=== PATIENT | female | born 1985 | race Caucasian/White ===

== ENCOUNTER 2016-08-14 08:05 | Day surgery (SDC) | payer OTHER ==
[~2016-08-14] VITALS: Ht 160 cm; Wt 97.0 kg
[~2016-08-14 08:05] MED LIST: 0.9% Sodium Chloride 1,000 ML IV SCH; HYG25 PO; L. A1CAP11 PO; NITR100 PO; Sodium Chloride LOK Flush 10 mL Syringe IV PRN; fentaNYL-PF 50 mCg/mL 2 mL Inj IVPUSH PRN
[2016-08-14 08:29] VITALS: BP 128/86; PULSE 85; RESP 14; O2SAT 96
[2016-08-14 09:22] VITALS: BP 118/62; PULSE 60; RESP 14; O2SAT 94
[2016-08-14 09:38] VITALS: BP 118/72; PULSE 66; RESP 14; O2SAT 98
--- NOTE | 2016-08-14 11:52 | ENDO ---
[address] [address] ENDOSCOPY PROCEDURE PATIENT: TINO LEONARDO : 1985 MR#: [id number] ADMIT: 08/14/2016 JOB ID: [id number] DATE OF SERVICE: 08/14/2016 PROCEDURE: Colonoscopy. INDICATION: Blood in the stool. ASA CLASSIFICATION: I MALLAMPATI SCORE: 2 MEDICATIONS: Versed at 6 mg, fentanyl 100 mcg. INSTRUMENT USED: [id number]. PREP QUALITY: Good. PROCEDURE DETAILS: After informed consent was obtained, the patient was brought to the GI suite where she was placed on oxygen via nasal cannula and monitored with continuous pulse oximeter, telemetry, and blood pressure monitoring. A time-out was performed. Then, she was placed in a left lateral decubitus position. Medications were administered for sedation. Digital rectal exam was performed which was unremarkable. The colonoscope was then inserted into the rectum and advanced under direct visualization to the cecum, which was identified by the presence of the ileocecal valve and appendiceal orifice. Once the cecum was reached, the terminal ileum was intubated, which was identified by the presence of the ileocecal valve and villous-appearing mucosa of the terminal ileum. From the terminal ileum, the colonoscope was then withdrawn back into the rectum as the mucosa and lumen were examined. In the rectum, retroflexion was performed. Following retroflexion, remaining air in the rectum was suctioned, and procedure was completed. FINDINGS: Normal exam from rectum to terminal ileum. IMPRESSION: Normal colonoscopy. Suspect blood in stool secondary to benign anorectal disease. RECOMMENDATIONS: 1. Fiber-rich diet. 2. Follow up in GI clinic. COMPLICATIONS: None. ESTIMATED BLOOD LOSS: Zero.
== END 2016-08-14 23:59 | disposition home or self-care (01) ==
LOC: END 08:05
PROVIDERS: ATTEND Internal Medicine Gastroenterology
DX: K92.1 Melena (principal)
CPT/HCPCS: 45378; G0500; J2250; J3010; J7030